=== PATIENT | male | born 1955 | race Caucasian/White ===

== ENCOUNTER 2020-01-08 16:58 | Emergency (ER) | payer MEDICAID ==
[~2020-01-08] VITALS: Ht 185.4 cm; Wt 91.0 kg
[2020-01-08 20:01] LABS: BASOPHILS # (AUTO) 0.1 X10'3 (0-0.2); BASOPHILS % (AUTO) 0.9 % (0-1); EOSINOPHILS # (AUTO) 0.3 X10'3 (0-0.9); EOSINOPHILS % (AUTO) 3.8 % (0-6); HEMATOCRIT 42.4 % (42.0-52.0); HEMOGLOBIN 14.5 g/dl (14.0-17.9); LYMPHOCYTES # (AUTO) 1.2 X10'3 (1.1-4.8); LYMPHOCYTES % (AUTO) 17.9 % (21-51); MEAN CORPUSCULAR HEMOGLOBIN 30.5 PG (27.0-31.0); MEAN CORPUSCULAR HGB CONC 34.3 g/dL (33.0-36.5); MEAN CORPUSCULAR VOLUME 88.9 FL (78-98); MEAN PLATELET VOLUME 8.5 FL (7.4-10.4); MONOCYTES # (AUTO) 0.5 X10'3 (0-0.9); MONOCYTES % (AUTO) 7.4 % (2-12); NEUTROPHILS # (AUTO) 4.8 X10'3 (1.8-7.7); PLATELET COUNT 207 X10'3 (140-440); RED BLOOD COUNT 4.77 X10'6 (4.70-6.10); WHITE BLOOD COUNT 6.8 X10'3 (4.5-11.0)
[2020-01-08 20:12] LABS: ALANINE AMINOTRANSFERASE 32 U/L (12-78); ALBUMIN 3.6 G/DL (3.4-5.0); ALBUMIN/GLOBULIN RATIO 1.1 (1.1-1.5); ALKALINE PHOSPHATASE 85 IU/L (46-116); ANION GAP 8 (8-16); ASPARTATE AMINO TRANSFERASE 31 U/L (10-37); BILIRUBIN,TOTAL 0.8 MG/DL (0.1-1.0); BLOOD UREA NITROGEN 14 MG/DL (7-18); BUN/CREATININE RATIO 16.7 (5.4-32.0); CALCIUM 9.1 MG/DL (8.5-10.1); CHLORIDE 108 MMOL/L (99-107); CREATININE 0.84 MG/DL (0.60-1.10); GLUCOSE 92 MG/DL (70-104); POTASSIUM 4.1 MMOL/L (3.5-5.1); SODIUM 142 MMOL/L (135-145); TOTAL CARBON DIOXIDE 25.8 MMOL/L (24-32); TOTAL PROTEIN 6.9 G/DL (6.4-8.2); eGFR > 90 ML/MIN
[2020-01-08] MEDS ORDERED: iohexol 300mg/ml 100ml inj. ONE (20:51)
[2020-01-08] MEDS ORDERED: LIDO20SO16 PO (22:23)
[2020-01-08] MEDS ORDERED: ibuprofen tablet 400 MG TABLET PO ONE (22:25)
[2020-01-08] MEDS ORDERED: LIDOcaine Viscous 15ml cup MM PRN (22:25)
[2020-01-08 23:14] VITALS: BP 150/80
== END 2020-01-08 23:00 | disposition home or self-care (01) ==
LOC: ER 16:59
DX: K12.1 Other forms of stomatitis (principal); R59.0 Localized enlarged lymph nodes; H92.01 Otalgia, right ear; Z79.899 Other long term (current) drug therapy
CPT/HCPCS: 36415; 70491; 80053; 85025; 87081; 87880; 99285; Q9967

== ENCOUNTER 2022-10-14 14:55 | Emergency (ER) | payer MEDICARE, MEDICAID ==
[~2022-10-14] VITALS: Ht 185.4 cm; Wt 90.0 kg
[~2022-10-14 14:55] MED LIST: LIDO20SO16 PO
[2022-10-14 15:50] VITALS: BP 136/73
[2022-10-14 16:49] LABS: BASOPHILS # (AUTO) 0.1 X10'3 (0-0.2); BASOPHILS % (AUTO) 0.8 % (0-1); EOSINOPHILS % (AUTO) 0.1 % (0-6); HEMATOCRIT 47.7 % (42.0-52.0); HEMOGLOBIN 16.5 g/dl (14.0-17.9); LYMPHOCYTES # (AUTO) 1.2 X10'3 (1.1-4.8); LYMPHOCYTES % (AUTO) 13.7 % (21-51); MEAN CORPUSCULAR HEMOGLOBIN 32.3 PG (27.0-31.0); MEAN CORPUSCULAR HGB CONC 34.6 g/dL (33.0-36.5); MEAN CORPUSCULAR VOLUME 93.5 FL (78-98); MEAN PLATELET VOLUME 8.9 FL (7.4-10.4); MONOCYTES # (AUTO) 0.4 X10'3 (0-0.9); MONOCYTES % (AUTO) 4.4 % (2-12); PLATELET COUNT 197 X10'3 (140-440); RED CELL DISTRIBUTION WIDTH 13.1 % (11.5-14.5); WHITE BLOOD COUNT 8.7 X10'3 (4.5-11.0)
[2022-10-14 17:00] LABS: ALANINE AMINOTRANSFERASE 51 U/L (12-78); ALBUMIN 4.1 G/DL (3.4-5.0); ALBUMIN/GLOBULIN RATIO 1.2 (1.1-1.5); ALKALINE PHOSPHATASE 85 IU/L (46-116); ANION GAP 10 (8-16); ASPARTATE AMINO TRANSFERASE 39 U/L (10-37); BILIRUBIN,TOTAL 2.2 MG/DL (0.1-1.0); BLOOD UREA NITROGEN 15 MG/DL (7-18); BUN/CREATININE RATIO 14.7 (5.4-32.0); CHLORIDE 101 MMOL/L (99-107); CREATININE 1.02 MG/DL (0.60-1.10); GLUCOSE 106 MG/DL (70-104); SODIUM 135 MMOL/L (135-145); TOTAL CARBON DIOXIDE 24.5 MMOL/L (24-32); TOTAL PROTEIN 7.5 G/DL (6.4-8.2); eGFR 73 ML/MIN
[2022-10-14] MEDS ORDERED: amox tr/potassium clavulanate 875/125mg TAB PO ONE (17:00)
[2022-10-14] MEDS ORDERED: TETanus/Pertussis (Acell)/Diphther VAC/PF (Tdap-Adult) 0.5ml syringe IMVAC ONE (17:00)
[2022-10-14] MEDS ORDERED: ibuprofen 200mg tablet PO ONE (17:00)
[2022-10-14] MEDS ORDERED: AMOX-117 PO (17:33)
== END 2022-10-14 18:15 | disposition home or self-care (01) ==
LOC: ER 14:55
DX: S81.852A Open bite, left lower leg, initial encounter (principal); R51.9 Headache, unspecified; W54.0XXA Bitten by dog, initial encounter; Y93.89 Activity, other specified; Y92.89 Other specified places as the place of occurrence of the external cause; Y99.8 Other external cause status
CPT/HCPCS: 36415; 80053; 85025; 90471; 90715; 99283

== ENCOUNTER 2023-05-27 17:18 | Emergency (ER) | payer MEDICARE, MEDICAID ==
[~2023-05-27] VITALS: Ht 185.4 cm; Wt 90.9 kg
[2023-05-27 18:16] VITALS: BP 140/86
[2023-05-27] MEDS ORDERED: bacitracin 15gm ointment TP ONE (19:05)
[2023-05-27] MEDS ORDERED: AMOX-580 PO (19:05)
[2023-05-27] MEDS ORDERED: amox tr/potassium clavulanate 875/125mg TAB PO ONE (19:05)
== END 2023-05-27 19:56 | disposition home or self-care (01) ==
LOC: ER 17:18
DX: S61.031A Puncture wound without foreign body of right thumb without damage to nail, initial encounter (principal); W55.01XA Bitten by cat, initial encounter; Y93.89 Activity, other specified; Y92.89 Other specified places as the place of occurrence of the external cause; Y99.8 Other external cause status
CPT/HCPCS: 73140; 99283

== ENCOUNTER 2025-06-29 15:06 | Emergency (ER) | payer MEDICARE, MEDICAID ==
[~2025-06-29] VITALS: Ht 185.4 cm; Wt 102.2 kg
[2025-06-29 15:16] VITALS: BP 145/77; PULSE 77; RESP 18; TEMP 97.9; O2SAT 98
--- NOTE | 2025-06-29 15:47 | RADIOLOGY REPORT ---
Indication: Shoulder Pain Technique: DI SHOULDER, COMPLETE (MIN 2 VWS)SHOULDERCM Comparison: None FINDINGS/IMPRESSION: No radiographic evidence for acute fracture or dislocation. No significant soft tissue edema. No rad iopaque foreign body. 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 Mild degenerative changes of the right glenohumeral joint.
== END 2025-06-29 18:50 | disposition left against medical advice (07) ==
LOC: ER 15:07
DX: M25.511 Pain in right shoulder (principal); Z53.21 Procedure and treatment not carried out due to patient leaving prior to being seen by health care provider
CPT/HCPCS: 73030